=== PATIENT | female | born 1995 | race Caucasian/White ===

== ENCOUNTER 2018-10-17 07:58 | Day surgery (SDC) | payer BC ==
[~2018-10-17] VITALS: Ht 152.4 cm; Wt 45.8 kg
[2018-10-17] MEDS ORDERED: fentaNYL CITRATE/PF 100 MCG/2 ML AMP IVP PRN ×2 (08:15)
[2018-10-17] MEDS ORDERED: ONDANSETRON HCL 4 MG/2 ML VIAL IVP PRN (08:15)
[2018-10-17 08:30] LABS: HCG,QUAL RESULT NEGATIVE (NEGATIVE)
[2018-10-17] MEDS ORDERED: ONDANSETRON HCL 4 MG/2 ML VIAL IVP ONE (09:26)
[2018-10-17] MEDS ORDERED: LIDOCAINE/EPI 1% 1:100000 20 ML VIAL INJ ONE (09:26)
[2018-10-17] MEDS ORDERED: NEOSTIGMINE METHYLSULFATE 1 MG/ML, 10 ML VIAL IVP ONE (09:26)
[2018-10-17] MEDS ORDERED: GLYCOPYRROLATE 0.2 MG/ML VIAL IJ ONE (09:26)
[2018-10-17] MEDS ORDERED: PROPOFOL 200MG/ 20ML VIAL (DIPRIVAN) IV ONE (09:26)
[2018-10-17] MEDS ORDERED: MIDAZOLAM HCL 5 MG/5 ML VIAL IVP ONE (09:26)
[2018-10-17] MEDS ORDERED: LR 1,000 ML IV.SOLN IV ONE (09:26)
[2018-10-17] MEDS ORDERED: SEVOFLURANE 15 MIN GAS INH ONE (09:26)
[2018-10-17] MEDS ORDERED: fentaNYL CITRATE/PF 100 MCG/2 ML AMP ONE (10:57)
[2018-10-17 11:23] VITALS: BP_SYST 113
[2018-10-17] MEDS ORDERED: HYDROcodone/ACETAMIN 5-325 MG TAB (NORCO/ VICODIN) PO ONE (12:15)
[2018-10-17] MEDS ORDERED: HYDROcodone/ACETAMIN 5-325 MG TAB (NORCO/ VICODIN) ONE (12:19)
== END 2018-10-17 13:30 | disposition home or self-care (01) ==
LOC: SDS 07:58 → SMU 07:58 → SDS 13:30
PROVIDERS: ATTEND Otolaryngology
DX: J34.2 Deviated nasal septum (principal); J34.89 Other specified disorders of nose and nasal sinuses; Z88.8 Allergy status to other drugs, medicaments and biological substances; F90.9 Attention-deficit hyperactivity disorder, unspecified type; Z80.9 Family history of malignant neoplasm, unspecified; Z83.3 Family history of diabetes mellitus; Z87.891 Personal history of nicotine dependence
CPT/HCPCS: 30140; 30520; 84703; 88304; 88311; J3010; J7120; 88305; J2250; J2405; J2704; J2710; J3490